=== PATIENT | male | born 1965 | race Caucasian/White ===

== ENCOUNTER 2016-07-08 11:00 | Emergency (ER) | payer SELFPAY ==
[~2016-07-08] VITALS: Ht 190.5 cm; Wt 120.0 kg
[2016-07-08 11:05] VITALS: BP 196/117; PULSE 88; RESP 20; TEMP 98.1; O2SAT 100
[2016-07-08 11:25] LABS: BLOOD, URINE LARGE (NEG); GLUCOSE,URINE NEG (NEG); KETONE, URINE NEG (NEG); NITRITE,URINE NEG (NEG); PH, URINE 5.5 (5.0-8.5)
[2016-07-08 11:35] LABS: METHOD OF COLLECTION CLEAN CATCH; URINE COLOR YELLOW (YELLW/STRAW)
[2016-07-08 11:36] LABS: COMMENT (UR) CULT NOT INDICATED; COMMENT2 (UR) MUCOUS PRESENT; CULTURE IF INDICATED CULT NOT INDICATED; RBC, URINE 100-200 /hpf (0-3); SQUAMOUS EPITHELIAL CELL URINE 0-5 /hpf (0-5)
[2016-07-08 11:54] VITALS: RESP 16; O2SAT 100
[2016-07-08] MEDS ORDERED: ONDANSETRON HCL 4 MG/2 ML VIAL IV PUSH ONE ×2 (12:00→12:45)
[2016-07-08] MEDS ORDERED: SODIUM CHLOR 0.9% 1000 ML INJ 1,000 ML IV ONE (12:00)
[2016-07-08] MEDS ORDERED: MORPHINE SULFATE 4 MG/ML INJ IV PUSH ONE (12:00)
[2016-07-08] MEDS: SODIUM CHLORIDE 0.9% FLUSH 5 ML FLUSH IVF PRN ×2 (12:00→12:58)
[2016-07-08 12:06] LABS: AUTOMATED NEUTROPHIL # 4.3 TH/MM3 (1.8-7.7); BASOPHIL % 0.7 % (0.0-2.0); EOSINOPHIL # 0.2 TH/MM3 (0-0.4); EOSINOPHIL % 2.9 % (0.0-4.0); HEMATOCRIT 41.8 % (39.0-51.0); HEMO FLAGS DIFF FINAL; LYMPH % 18.8 % (9.0-44.0); LYMPHOCYTE # 1.2 TH/MM3 (1.0-4.8); MEAN CELL VOLUME 91.4 FL (80.0-100.0); MEAN CORPUSCULAR HEMOGLOBIN 31.4 PG (27.0-34.0); MEAN CORPUSCULAR HGB CONC 34.4 % (32.0-36.0); MONO % 6.5 % (0.0-8.0); NEUT % 71.1 % (16.0-70.0); PLATELET COUNT 171 TH/MM3 (150-450); RED BLOOD COUNT 4.57 MIL/MM3 (4.50-5.90); WHITE BLOOD COUNT 6.1 TH/MM3 (4.0-11.0)
--- NOTE | 2016-07-08 12:07 | PD ---
HPI Chief Complaint: Flank/Kidney Pain Time Seen by Provider: 11:46 Travel History International Travel<30 days: No Contact w/Intl Traveler<30days: No Traveled to known affect area: No History of Present Illness HPI Patient is a 50-year-old male with a history of kidney stones presents with right flank pain fairly sudden onset approximately an hour ago states fairly intense and gradually worsening but waxing and waning.. Patient states he feels like somebody punched him in the back hard. Patient states feels very similar to previous kidney stones he's had. States mild nausea without vomiting. No interventions prior to arrival. Denies any diarrhea denies any fever denies any dysuria. PFSH Social History Tobacco Use: No Allergies-Medications (Allergen,Severity, Reaction): Coded Allergies: Toradol (Verified Allergy, Intermediate, ITCHING, THROAT SWELLING, HIVES, 07/08/16) Penicillin (Verified Allergy, Unknown, UNKNOWN, 07/08/16) Reported Meds & Prescriptions Reported Meds & Active Scripts Active Killdeer (Hydrocodone-Acetaminophen) 10-325 Mg Tab 1 Tab PO Q6H PRN Zofran Odt (Ondansetron Odt) 4 Mg Tab 4 Mg SL Q6HR PRN Flomax (Tamsulosin HCl) 0.4 Mg Cap 0.4 Mg PO HS Reported Zofran (Ondansetron HCl) 4 Mg Tab 4 Mg PO Q8HR PRN Flomax (Tamsulosin HCl) 0.4 Mg Cap 0.4 Mg PO DAILY Review of Systems Except as stated in HPI: all other systems reviewed are Neg Physical Exam Narrative GENERAL: Well-developed well-nourished leaning forward in mild discomfort. SKIN: Warm and dry. HEAD: Atraumatic. Normocephalic. EYES: Pupils equal and round. No scleral icterus. No injection or drainage. ENT: No nasal bleeding or discharge. Mucous membranes pink and moist. NECK: Trachea midline. No JVD. CARDIOVASCULAR: Regular rate and rhythm. No murmur appreciated. RESPIRATORY: No accessory muscle use. Clear to auscultation. Breath sounds equal bilaterally. GASTROINTESTINAL: Abdomen soft, non-tender, nondistended. Hepatic and splenic margins not palpable. Positive CVA tenderness on the right, negative on the left. MUSCULOSKELETAL: No obvious deformities. No clubbing. No cyanosis. No edema. NEUROLOGICAL: Awake and alert. No obvious cranial nerve deficits. Motor grossly within normal limits. Normal speech. PSYCHIATRIC: Appropriate mood and affect; insight and judgment normal. Data Data Last Documented VS Vital Signs Date Time Temp Pulse Resp B/P Pulse Ox O2 Delivery O2 Flow Rate FiO2 07/08/16 14:15 82 16 157/87 99 07/08/16 12:16 Room Air 07/08/16 11:05 98.1 Orders Urinalysis - C+S If Indicated (07/08/16 11:04) Complete Blood Count With Diff (07/08/16 11:46) Comprehensive Metabolic Panel (07/08/16 11:46) Iv Access Insert/Monitor (07/08/16 11:46) Ecg Monitoring (07/08/16 11:46) Oximetry (07/08/16 11:46) Sodium Chloride 0.9% Flush (Ns Flush) (07/08/16 12:00) Morphine Inj (Morphine Inj) (07/08/16 12:00) Ondansetron Inj (Zofran Inj) (07/08/16 12:00) Sodium Chlor 0.9% 1000 Ml Inj (Ns 1000 M (07/08/16 12:00) Ct Abd/Pel W/O Iv Contrast (07/08/16 ) Ondansetron Inj (Zofran Inj) (07/08/16 12:45) Oxycodone-Acetamin 5-325 Mg (Percocet (07/08/16 13:30) Labs Laboratory Tests Test 07/08/16 07/08/16 11:10 11:45 Urine Collection Type CLEAN CATCH Urine Color YELLOW Urine Turbidity CLEAR Urine pH 5.5 Urine Specific [place] 1.016 Urine Protein NEG mg/dL Urine Glucose (UA) NEG mg/dL Urine Ketones NEG mg/dL Urine Occult Blood LARGE Urine Nitrite NEG Urine Bilirubin NEG Urine Leukocyte Esterase NEG Urine RBC 100-200 /hpf Urine Squamous Epithelial 0-5 /hpf Cells Urine Amorphous Sediment FEW Microscopic Urinalysis Comment CULT NOT INDICATED Urine Collection Time 1110 White Blood Count 6.1 TH/MM3 Red Blood Count 4.57 MIL/MM3 Hemoglobin 14.4 GM/DL Hematocrit 41.8 % Mean Corpuscular Volume 91.4 FL Mean Corpuscular Hemoglobin 31.4 PG Mean Corpuscular Hemoglobin 34.4 % Concent Red Cell Distribution Width 13.0 % Platelet Count 171 TH/MM3 Mean Platelet Volume 9.1 FL Neutrophils (%) (Auto) 71.1 % Lymphocytes (%) (Auto) 18.8 % Monocytes (%) (Auto) 6.5 % Eosinophils (%) (Auto) 2.9 % Basophils (%) (Auto) 0.7 % Neutrophils # (Auto) 4.3 TH/MM3 Lymphocytes # (Auto) 1.2 TH/MM3 Monocytes # (Auto) 0.4 TH/MM3 Eosinophils # (Auto) 0.2 TH/MM3 Basophils # (Auto) 0.0 TH/MM3 CBC Comment DIFF FINAL Differential Comment Sodium Level 142 MEQ/L Potassium Level 3.6 MEQ/L Chloride Level 107 MEQ/L Carbon Dioxide Level 26.8 MEQ/L Anion Gap 8 MEQ/L Blood Urea Nitrogen 9 MG/DL Creatinine 1.00 MG/DL Estimat Glomerular Filtration 78 ML/MIN Rate Random Glucose 102 MG/DL Calcium Level 8.7 MG/DL Total Bilirubin 0.9 MG/DL Aspartate Amino Transf 16 U/L (AST/SGOT) Alanine Aminotransferase 36 U/L (ALT/SGPT) Alkaline Phosphatase 111 U/L Total Protein 8.1 GM/DL Albumin 3.9 GM/DL [facility] Medical Decision Making Medical Screen Exam Complete: Yes Emergency Medical Condition: Yes Differential Diagnosis Kidney stone, TORO, UTI, hydronephrosis. Narrative Course Patient given morphine as he is toradol allergic. Patient without significant response. Percocet ordered as well as CT No toro, no UTI. Last 24 hours Impressions Abdomen/Pelvis CT 07/08/16 0000 Signed Impressions: Service Date/Time: Friday, July 08, 2016 12:43 - CONCLUSION: 3 mm calculus right ureter level of L3 without obstructive uropathy. Each kidney has a punctate calyceal stone nonobstructive on the right towards the lower pole on the left midpole. Peter Kelly MD Discussed results with patient and need for follow up with PCP. Discussed follow up with urologist and he states he has one. Return to ED criteria discussed. He appears more comfortable after percocet and is stable for discharge. Diagnosis Primary Impression: Kidney stone Referrals: Eric Licea MD Med/Other Pt SpecificInfo: Prescription(s) given Scripts Hydrocodone-Acetaminophen (Killdeer)10-325 Mg Tab1 Tab PO Q6H PRN (PAIN) #10 TAB Ref 0 Prov:Barry Shah MD 07/08/16 Ondansetron Odt (Zofran Odt)4 Mg Tab4 Mg SL Q6HR PRN (Nausea/Vomiting) #30 TAB Ref 0 Prov:Barry Shah MD 07/08/16 Tamsulosin (Flomax)0.4 Mg Cap0.4 Mg PO HS #30 CAP Ref 0 Prov:Barry Shah MD 07/08/16 Disposition: 01 DISCHARGE HOME Condition: Stable Barry Shah MD Jul 08, 2016 12:07
[2016-07-08] MEDS ORDERED: TAMS5CAP PO ×2 (12:08→13:27)
[2016-07-08] MEDS ORDERED: ZOFR4TAB PO (12:08)
[2016-07-08 12:10] LABS: CHLORIDE 107 MEQ/L (98-107); POTASSIUM 3.6 MEQ/L (3.5-5.1); SODIUM (NA) 142 MEQ/L (136-145)
[2016-07-08 12:13] LABS: ANION GAP 8 MEQ/L (5-15); BICARBONATE 26.8 MEQ/L (21.0-32.0)
[2016-07-08 12:14] LABS: BLOOD UREA NITROGEN 9 MG/DL (7-18)
[2016-07-08 12:16] VITALS: BP 168/91; PULSE 85; RESP 16; O2SAT 98
[2016-07-08 12:16] LABS: ALT (GPT) 36 U/L (12-78); AST (GOT) 16 U/L (15-37)
[2016-07-08 12:17] LABS: GLOMERULAR FILTRATION RATE 78 ML/MIN (>89)
[2016-07-08 12:18] LABS: TOTAL BILIRUBIN ADULT 0.9 MG/DL (0.2-1.0)
[2016-07-08 12:19] LABS: ALKALINE PHOSPHATASE 111 U/L (45-117)
--- NOTE | 2016-07-08 13:20 | RADHPO ---
EXAM DATE/TIME: 07/08/2016 12:43 [facility] COMPARISON: No previous studies available for comparison. INDICATIONS : Right flank pain radiating to left side. Hematuria. ORAL CONTRAST: No oral contrast ingested. RADIATION DOSE: 23.89 CTDIvol (mGy) MEDICAL HISTORY : Renal calculi. SURGICAL HISTORY : Cholecystectomy. Inguinal hernia repair. ENCOUNTER: Initial ACUITY: 1 day PAIN SCALE: 5/10 LOCATION: Bilateral flank TECHNIQUE: Volumetric scanning of the abdomen and pelvis was performed. Using automated exposure control and ad justment of the mA and/or kV according to patient size, radiation dose was kept as low as reasonably achievable to obtain optimal diagnostic quality images. FINDINGS: LOWER LUNGS: The visualized lower lungs are clear. LIVER: Homogeneous density without lesion. There is no dilation of the biliary tree. Clips in place prior c holecystectomy SPLEEN: Normal size without lesion. PANCREAS: Within normal limits. KIDNEYS: Normal in size and shape. There is no mass or hydronephrosis. Single midpole bilateral calyceal nono bstructing stones with a 3 mm calculus at the level of L3 and the right ureter without obstructive ur opathy, hydronephrosis. ADRENAL GLANDS: Within normal limits. VASCULAR: There is no aortic aneurysm. BOWEL/MESENTERY: The stomach, small bowel, and colon demonstrate no acute abnormality. There is no free intraperitone al air or fluid. Appendix visualized and is normal. ABDOMINAL WALL: Within normal limits. RETROPERITONEUM: There is no lymphadenopathy. BLADDER: No wall thickening or mass. REPRODUCTIVE: Within normal limits. INGUINAL: Negative MUSCULOSKELETAL: Degenerative changes lower lumbar spine particularly facet arthritic changes L4-S1 CONCLUSION: 3 mm calculus right ureter level of L3 without obstructive uropathy. Each kidney has a punctate calyc eal stone nonobstructive on the right towards the lower pole on the left midpole. Peter Kelly MD on July 08, 2016 at 13:12 Board Certified Radiologist. This report was verified electronically.
[2016-07-08] MEDS ORDERED: ZOFR4TAB3 SL (13:27)
[2016-07-08] MEDS ORDERED: ULTR50TA5 PO (13:27)
[2016-07-08] MEDS ORDERED: oxyCODONE/ACETAMINOPHEN 5 MG/325 MG TAB PO ONE (13:30)
[2016-07-08] MEDS ORDERED: HYDR-3366 PO (13:35)
[2016-07-08 14:13] VITALS: RESP 16
[2016-07-08 14:15] VITALS: BP 157/87
== END 2016-07-08 14:18 | disposition home or self-care (01) ==
LOC: PHED 11:00
DX: N20.0 Calculus of kidney (principal); N20.1 Calculus of ureter; R11.0 Nausea; Z87.442 Personal history of urinary calculi
CPT/HCPCS: 74176; 80053; 81001; 85025; 96361; 96374; 96375; 96376; 99284; J2270; J2405; J7030